=== PATIENT | male | born 1995 | race Caucasian/White ===

== ENCOUNTER 2016-11-22 23:49 | Emergency (ER) | payer OTHER ==
[2016-11-22 23:55] VITALS: BP 139/76; PULSE 100; RESP 20; TEMP 98.7
[2016-11-23] MEDS ORDERED: LIDOCAINE/EPINEPHR/TETRACAINE 5 ML BOTTLE TOPICAL ONE (00:09)
[2016-11-23] MEDS ORDERED: TOPICAL SKIN ADHESIVE 1 EACH AMP TOPICAL ONE (00:13)
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
== END 2016-11-23 00:45 | disposition home or self-care (01) ==
LOC: EC 23:49
DX: S01.81XA Laceration without foreign body of other part of head, initial encounter (principal); W22.8XXA Striking against or struck by other objects, initial encounter; Y93.83 Activity, rough housing and horseplay
CPT/HCPCS: 12011; 99282

== ENCOUNTER 2019-02-21 10:44 | Emergency (ER) | payer OTHER ==
[2019-02-21 11:32] VITALS: RESP 16; TEMP 97.9
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
[2019-02-21] MEDS ORDERED: ACETAMINOPHEN TAB 500 MG TAB PO STA (12:22)
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
[2019-02-21 12:37] VITALS: BP 120/73; PULSE 82
== END 2019-02-21 12:53 | disposition home or self-care (01) ==
LOC: EC 10:44
DX: S80.212A Abrasion, left knee, initial encounter (principal); S09.90XA Unspecified injury of head, initial encounter; V89.2XXA Person injured in unspecified motor-vehicle accident, traffic, initial encounter; Y92.410 Unspecified street and highway as the place of occurrence of the external cause
CPT/HCPCS: 70450; 99284